=== PATIENT | male | born 1980 | race Caucasian/White ===

== ENCOUNTER 2019-05-10 17:49 | Emergency (ER) | payer BC, SELFPAY ==
[~2019-05-10] VITALS: Ht 170.2 cm; Wt 110.0 kg
[2019-05-10 17:50] VITALS: BP 156/79
[2019-05-11] MEDS ORDERED: GABA-843 PO (01:45)
[2019-05-11] MEDS ORDERED: PRED10TA2 PO (01:45)
[2019-05-11] MEDS ORDERED: PERC5TAB12 PO (01:45)
[2019-05-11] MEDS ORDERED: OXYC1TAB23 PO (01:49)
== END 2019-05-10 19:49 | disposition left against medical advice (07) ==
LOC: M ED 17:49
DX: Z53.29 Procedure and treatment not carried out because of patient's decision for other reasons (principal)

== ENCOUNTER 2019-05-10 23:14 | Emergency (ER) | payer BC, SELFPAY ==
[~2019-05-10] VITALS: Ht 170.2 cm; Wt 110.0 kg
[2019-05-11] MEDS ORDERED: predniSONE 20 MG TAB PO ONE (01:45)
[2019-05-11] MEDS ORDERED: PRED10TA2 PO (01:45)
[2019-05-11] MEDS ORDERED: PERCOCET 5MG/325MG TAB PO ONE (01:45)
[2019-05-11] MEDS ORDERED: GABA-843 PO (01:45)
[2019-05-11] MEDS ORDERED: PERC5TAB12 PO (01:45)
[2019-05-11 01:49] VITALS: BP 134/69
[2019-05-11] MEDS ORDERED: OXYC1TAB23 PO (01:49)
--- NOTE | 2019-05-11 07:44 | REP ---
Clinical: Pain. Technique: Neutral and frog lateral views of the right hip. Findings: Osseous structures, joint spaces, and surrounding soft tissues are normal. No acute fracture or dislocation. No overt arthritic degenerative changes are appreciated. No abnormal calcifications or loose bodies. Impression: Normal, age-appropriate right hip radiographs. Electronically Signed by Homero Carias MD 05/11/2019 07:36 A
== END 2019-05-11 01:52 | disposition home or self-care (01) ==
LOC: M ED 23:14
DX: M54.10 Radiculopathy, site unspecified (principal); S76.011A Strain of muscle, fascia and tendon of right hip, initial encounter; Y92.9 Unspecified place or not applicable; Y93.9 Activity, unspecified; F17.210 Nicotine dependence, cigarettes, uncomplicated; F12.90 Cannabis use, unspecified, uncomplicated; Z91.013 Allergy to seafood